=== PATIENT | male | born 1945 | race Caucasian/White ===

== ENCOUNTER → 2020-08-28 | Outpatient (CLI) | payer MEDICARE ==
--- NOTE | 2020-08-28 09:23 | RAD ---
EXAM: Abdomen and pelvis CT without intravenous contrast. HISTORY: Renal cell carcinoma. Nephrectomy. TECHNIQUE: Computed tomographic images of the abdomen and pelvis were obtained without intravenous co ntrast. Multiplanar reformatting was performed. *One or more of the following individualized dose reduction techniques were utilized for this examina tion: 1. Automated exposure control. 2. Adjustment of the mA and/or kV according to patient size. 3. Use of iterative reconstruction technique. COMPARISON: None. FINDINGS: Evaluation of the lower thorax demonstrates elevation of the right hemidiaphragm with right basilar compressive atelectasis. There is minimal emphysema. There is no infiltrate or suspicious pu lmonary nodule. The heart is normal in size. No suspicious hepatic lesion is seen on this noncontrast exam. The gallbladder, pancreas, spleen and adrenal glands are unremarkable. The right kidney is surgically absent. There is a small amount of piper spected scar/granulation tissue within the right nephrectomy bed. No suspicious mass is seen in this location. There are hypodense lesions within the left kidney, the largest of which measures 3.1 cm within the l ower pole and is likely a cyst or dilated calyx. The smaller lesions are too small to characterize on this noncontrast exam. There is a 12 mm stone or cluster of stones within the lower pole the left ki dney. There is also an 8 mm stone within the distal left ureter immediately proximal to the ureterove sical junction. There is no associated hydronephrosis. There is a 9 mm stone or cluster of stones within the right bladder base. There is deformation of the bladder due to nodular enlargement of the prostate. There is mild bladder wall thickening likely due to a component of chronic outlet obstruction. There is no appendicitis. There is no bowel obstruction. There is colonic diverticulosis. There is no convincing diverticulitis. The aorta is normal in caliber. There are nonspecific retroperitoneal lym ph nodes. There is degenerative change throughout the visualized spine. There is no acute or suspicio us osseous finding. IMPRESSION: 1. Right nephrectomy. There are suspected scar/granulation tissue adjacent to surgical clips within t he nephrectomy bed. No recurrent or residual malignancy is seen in this location. 2. Multiple hypodense lesions within the left kidney, the largest of which is likely a cyst or dilate d calyx. Evaluation for small solid renal lesions is limited in the absence of contrast. 3. Left nephrolithiasis and distal ureterolithiasis. There is no hydronephrosis. 4. 9 mm stone or cluster of stones within the bladder adjacent to the right ureterovesical junction. There is deformation of the bladder base due to prostatomegaly and bladder wall thickening likely due to chronic outlet obstruction. 5. Colonic diverticulosis. Electronically signed by: Lisette Leon MD (08/28/2020 9:21 AM) [id number]
== END ==
LOC: CT 07:49
PROVIDERS: ATTEND Internal Medicine
DX: N20.0 Calculus of kidney (principal); K57.30 Diverticulosis of large intestine without perforation or abscess without bleeding; Z85.528 Personal history of other malignant neoplasm of kidney; Z90.5 Acquired absence of kidney
CPT/HCPCS: 74176

== ENCOUNTER → 2020-11-09 | Outpatient (CLI) | payer MEDICARE ==
--- NOTE | 2020-11-09 11:57 | RAD ---
EXAM: RENAL ULTRASOUND CLINICAL HISTORY: Reason: URETERAL CALCULUS COMPARISON: CT abdomen pelvis August 28, 2020 TECHNIQUE: Ultrasound examination of the bilateral kidneys and urinary bladder was performed. FINDINGS: Patient is status post right nephrectomy. The left kidney measures 15.1 x 7.1 x 6.2 cm in bipolar length. The renal cortex is normal in thickne ss. Renal echogenicity is normal. There is no evidence for hydronephrosis, shadowing renal calculus o r focal abnormality. Largest cyst measures up to 2.5 cm. Images of the partially filled urinary bladder are unremarkable. IVC is not visualized. No aneurysmal dilatation of the aorta visualized. IMPRESSION: No left hydronephrosis or evidence of obstructive uropathy. Electronically signed by: Ranulfo Ying (11/09/2020 11:55 AM) [id number]
== END ==
LOC: US 08:34
PROVIDERS: ATTEND Specialist
DX: N28.1 Cyst of kidney, acquired (principal); N20.1 Calculus of ureter
CPT/HCPCS: 76770

== ENCOUNTER → 2020-12-15 | Outpatient (CLI) | payer MEDICARE ==
--- NOTE | 2020-12-19 09:20 | RAD ---
XR ABDOMEN 1V History: Left kidney stone, right kidney removed from cancer. Comparison: CT abdomen and pelvis 08/28/2020. Technique: AP views of the abdomen and pelvis Findings: Bowel gas pattern: Unremarkable. Free air: No supine evidence. Abnormal calcifications: Redemonstrated calcification at the lower pole left kidney measuring approxi mately 1.2 cm. No ureterolithiasis identified. Bones: Degenerative changes of the lumbosacral junction and bilateral hips. Other: Surgical clips in the right renal fossa compatible with prior nephrectomy. Impression: 1. Left lower pole nephrolith measuring 1.2 cm. No ureterolithiasis identified. Electronically signed by: Arturo Kiser MD (12/19/2020 9:18 AM) [facility]
== END ==
LOC: RAD 14:55
PROVIDERS: ATTEND Internal Medicine
DX: N20.0 Calculus of kidney (principal)
CPT/HCPCS: 74018

== ENCOUNTER → 2021-07-16 | Outpatient (CLI) | payer MEDICARE ==
--- NOTE | 2021-07-16 13:09 | RAD ---
EXAMINATION: US RENAL BILAT. HISTORY: 75 years Male Reason: KIDNEY STONE, HX KIDNEY CANCER, RT NEPHRECTOMY IN 1999 / Spl. Instr uctions: / History: . COMPARISON: November 09, 2020. TECHNIQUE: Routine renal ultrasound was performed. FINDINGS: The right kidney was surgically removed. The left kidney measures 12 cm in length. Cortical echogeni city and thickness are within normal limits. No hydronephrosis. Complicated cyst with thin septation is seen measuring 2.5 cm in the mid to lower pole. This is similar to the previous exam. The urinary bladder demonstrate no focal lesion. The the bladder volume is 246 mL. The prostate is en larged projecting into the bladder base. The prostate measures 6.7 x 3.7 x 3.5 cm. IMPRESSION: No hydronephrosis. Prostate enlargement. Electronically signed by: Refugio Loyd MD (07/16/2021 1:07 PM) [id number]
== END ==
LOC: US 10:36
PROVIDERS: ATTEND Specialist
DX: N28.1 Cyst of kidney, acquired (principal); N40.0 Benign prostatic hyperplasia without lower urinary tract symptoms; Z90.5 Acquired absence of kidney; Z85.528 Personal history of other malignant neoplasm of kidney
CPT/HCPCS: 76770